=== PATIENT | female | born 1980 | race Caucasian/White ===

== ENCOUNTER 2022-10-08 19:08 | Emergency (ER) | payer OTHER, SELFPAY ==
[2022-10-08 19:34] VITALS: BP 106/53; PULSE 78; RESP 18; TEMP 36.7; O2SAT 99; BMI 23.8
[2022-10-08 20:14] LABS: Basophils % 0.8 %; Eosinophils # 0.1 10^3/uL (0.0-0.8); Hematocrit 34.4 % (37.0-47.0); Hemoglobin 10.5 g/dL (11.5-15.3); Lymphocytes # 1.2 10^3/uL (0.8-4.8); Mean Corpuscular HGB Conc 30.5 g/dL (30.0-36.0); Mean Corpuscular Hemoglobin 27.1 pg (28.0-34.0); Mean Corpuscular Volume 88.7 fl (81-99); Mean Platelet Volume 11.3 fL (7.4-10.4); Monocytes # 0.4 10^3/uL (0.2-0.9); Monocytes % 9.4 %; Neutrophils # 2.04 10^3/uL (1.8-7.7); Neutrophils % 54.8 %; Nucleated Red Blood Cells % 0 %; Platelet Count 195 10^3/cmm (130-400); Red Blood Count 3.88 10^6/uL (4.1-5.3); Red Cell Distribution Width 14.2 % (12.1-15.1); White Blood Count 3.7 10^3/uL (4.0-10.0)
[2022-10-08 20:32] LABS: HCG, Serum Qual Negative (Negative)
[2022-10-08 21:30] LABS: Alanine Aminotransferase 8 U/L (0-33); Albumin Level 4.3 g/dL (3.5-5.2); Alkaline Phosphatase 87 U/L (35-105); Anion Gap 13.1 (5-19); Aspartate Amino Transferase 14 U/L (0-32); Blood Urea Nitrogen 11 mg/dL (6-20); Carbon Dioxide 28 mmol/L (22-29); Chloride 104 mmol/L (98-107); Globulin 2.7 g/dL (1.3-4.6); Glomerular Filtration Rate 175.9 mL/min (90-130); Glucose 94 mg/dL (65-115); Lipase 38 U/L (13-60); Osmolality Calculated 291 mOsm/kg (285-295); Potassium 4.1 mmol/L (3.5-5.1); Sodium 141 mmol/L (136-145); Total Bilirubin 0.3 mg/dL (0.15-1.2)
[2022-10-08 21:45] VITALS: BP 117/80; PULSE 59; RESP 18; O2SAT 100
[2022-10-08 21:53] LABS: Add Urine Microscopic? NO; Charge for UA Resulting for Rev
--- NOTE | 2022-10-08 21:56 | CTR_ITS ---
PROCEDURE INFORMATION: Exam: CT Abdomen And Pelvis Without Contrast Exam date and time: 10/08/2022 10:43 PM Age: 42 years old Clinical indication: Abdominal pain; Prior surgery; Surgery type: Gb. Hysterectomy. Csection. Rd. Patient HX: C/O left flank pain TECHNIQUE: Imaging protocol: Computed tomography of the abdomen and pelvis without contrast. Radiation optimization: All CT scans at this facility use at least one of these dose optimization techniques: automated exposure control; mA and/or kV adjustment per patient size (includes targeted exams where dose is matched to clinical indication); or iterative reconstruction. REPORTING DATA: Count of CT and Cardiac NM exams in prior 12 months: This patient has received 0 known CTs and 0 known cardiac nuclear medicine studies in the 12 months prior to the current study. COMPARISON: No relevant prior studies available. RADIATION DOSE METRICS: Total DLP (mGy-cm): 369.03 FINDINGS: Liver: The liver is unremarkable in appearance. Gallbladder and bile ducts: The gallbladder is surgically absent. Pancreas: The pancreas is normal in appearance. No pancreatic duct dilatation. Spleen: Calcified granulomas are noted in the spleen. No splenomegaly. Adrenal glands: The adrenal glands appear within normal limits. Kidneys and ureters: The kidneys are morphologically normal. No nephrolithiasis. No hydronephrosis. No ureteral calculi. No obstructive uropathy. Stomach and bowel: Unremarkable. No obstruction. No mucosal thickening. Appendix: The appendix is normal in appearance. No evidence of appendicitis. The appendix is normal in appearance. No evidence of appendicitis. Intraperitoneal space: No pneumoperitoneum. No significant fluid collection. Vasculature: No abdominal aortic aneurysm. Lymph nodes: No pathologically enlarged lymph nodes. Urinary bladder: Unremarkable as visualized. Reproductive: Status post hysterectomy. There is abnormal thickening of the vaginal cuff, of uncertain etiology and significance. Bilateral ovaries are identified. Left ovary is slightly larger than the right ovary, of uncertain significance. No dominant ovarian cyst or solid mass on either side. Bones/joints: Left hip prosthesis noted. Degenerative spine changes. Soft tissues: Unremarkable. CT/CT kidney stone [id number] IMPRESSION: 1. The kidneys are morphologically normal. No nephrolithiasis. No hydronephrosis. No ureteral calculi. No obstructive uropathy. 2. Status post hysterectomy. There is abnormal thickening of the vaginal cuff, of uncertain etiology and significance. 3. Bilateral ovaries are identified. Left ovary is slightly larger than the right ovary, of uncertain significance. No dominant ovarian cyst or solid mass on either side. 4. Consider transvaginal ultrasound examination for further assessment of the thickened vaginal cuff and the bilateral ovaries.
--- NOTE | 2022-10-08 21:57 | W.ED.ABDPA2 ---
HPI - Abdominal Pain General: Chief Complaint: Abdominal Pain Stated Complaint: lower abd pain Time Seen by Provider: 10/08/22 21:40 History of Present Illness: Patient is a 42-year-old female comes to the ED with abdominal pain. Symptoms started this morning when she woke up. Pain was mild through most the day then this evening pain spiked up and was very intense. Denies any worsening or improving factors. She says the pain was more mild at that point was located in the left lower quadrant of the abdomen. Pain radiates up left flank and towards back. She rates the pain currently an 8 out of 10. Denies any fevers, nausea/vomiting, bowel symptoms, dysuria or hematuria. Associated Symptoms: Denies chills, constipation, diarrhea, dysuria, fever(s), hematochezia, hematuria, nausea and vomiting Review of Systems Const: Denies: fever(s), chills or fatigue Eyes: Denies: change in vision or eye discomfort ENMT: Denies: throat pain, odynophagia, nasal discharge or nasal congestion Card: Denies: chest pain, palpitations, edema, swelling of feet/ankles, dyspnea on exertion or orthopnea Resp: Denies: dyspnea, productive cough or non-productive cough GI: Reports: abdominal pain; Denies: nausea, vomiting, diarrhea, constipation or hematochezia : Reports: flank pain (Left flank); Denies: dysuria or hematuria Musc: Denies: neck pain, back pain or extremity swelling Skin/Breast: Denies: rash or new lesions Neuro: Denies: headache(s), numbness in extremities or weakness in extremities [facility] ED PFSH: Medical History No pertinent family history No pertinent past medical history Physical Exam Const: COMMON NORMALS: patient oriented x3 and alert GENERAL APPEARANCE: cooperative HENMT: COMMON NORMALS: normocephalic HEAD & SCALP: normocephalic MOUTH: Normal oral and palatal mucosa present THROAT: posterior oropharynx normal and uvula midline Neck/C-Spine: COMMON NORMALS: supple GENERAL: Yes normal visual inspection Resp: COMMON NORMALS: normal respiratory effort, No retractions, No use of accessory muscles and clear to auscultation bilaterally AUSCULTATION: clear to auscultation bilaterally Cardio: COMMON NORMALS: regular rate, regular rhythm, S1 normal heart sound present, S2 normal heart sound present, No gallops present (Cardio), No clicks present (Cardio), No murmurs present (Cardio) and Peripheral pulses 2+ throughout RATE: regular rate RHYTHM: regular rhythm HEART SOUNDS: S1 normal heart sound present and S2 normal heart sound present PERIPHERAL PULSES: Peripheral pulses 2+ throughout GI: COMMON NORMALS: Normal to inspection, nondistended, normoactive bowel sounds present, Soft to palpation and no masses PALPATION: Yes Soft to palpation and Yes Tenderness to palpation present (GI) Details: LLQ : COMMON NORMALS: Yes no CVA tenderness BLADDER/KIDNEY EXAM: Yes no CVA tenderness Back/Pelvis: COMMON NORMALS: no CVA tenderness Extremity: COMMON NORMALS: normal to inspection Neuro: COMMON NORMALS: patient oriented x3 SENSORIUM/ORIENTATION: Yes alert GAIT: Yes Normal gait present Skin: GENERAL SKIN EXAM: dry skin Course Vital Signs: Vital signs: Vital Signs Temperature 98.1 F 10/08/22 19:34 Pulse Rate 86 10/09/22 02:16 Respiratory Rate 18 10/09/22 02:16 Blood Pressure 124/76 10/09/22 02:16 Pulse Oximetry 100 10/09/22 02:16 Oxygen Delivery Me thod Room Air 10/09/22 02:10 MDM - Abdominal Pain Medical Decision Making Patient is a 42-year-old female comes to the ED with abdominal pain. Symptoms started this morning when she woke up. Pain was mild through most the day then this evening pain spiked up and was very intense. Denies any worsening or improving factors. She says the pain was more mild at that point was located in the left lower quadrant of the abdomen. Pain radiates up left flank and towards back. She rates the pain currently an 8 out of 10. Denies any fevers, nausea/vomiting, bowel symptoms, dysuria or hematuria. Vitals are stable. Patient does appear uncomfortable and in some pain. Exam shows left lower quadrant abdominal tenderness, but rest of exam is benign. Labs are all unremarkable. hCG negative. UA unremarkable. CT abdomen pelvis showed no acute findings but did note large left ovary and abnormal thickening of vaginal cuff and radiologist recommended ultrasound for further evaluation. Patient did not want to wait for ultrasound and was wanting to be discharged home. Patient said her symptoms have improved and she will follow-up with her primary care physician within the next week for reevaluation and I told her to make sure she talks with her PCP about getting set up with an outpatient ultrasound. She was given strict return to ED precautions. She was diagnosed with abdominal pain and was discharged home with a prescription for nausea med and pain med. Patient understood and agreed with plan. Lab Data I reviewed the patient's lab results. 10/08/22 19:53 10/08/22 20:48 Labs/Radiology: Radiology Impressions Abdomen/Pelvis CT 10/08/22 21:56 IMPRESSION: 1. The kidneys are morphologically normal. No nephrolithiasis. No hydronephrosis. No ureteral calculi. No obstructive uropathy. 2. Status post hysterectomy. There is abnormal thickening of the vaginal cuff, of uncertain etiology and significance. 3. Bilateral ovaries are identified. Left ovary is slightly larger than the right ovary, of uncertain significance. No dominant ovarian cyst or solid mass on either side. 4. Consider transvaginal ultrasound examination for further assessment of the thickened vaginal cuff and the bilateral ovaries. Laboratory Results WBC 3.7 10^3/uL (4.0-10.0) L 10/08/22 19:53 RBC 3.88 10^6/uL (4.1-5.3) L 10/08/22 19:53 Hgb 10.5 g/dL (11.5-15.3) L 10/08/22 19:53 Hct 34.4 % (37.0-47.0) L 10/08/22 19:53 MCV 88.7 fl (81-99) 10/08/22 19:53 MCH 27.1 pg (28.0-34.0) L 10/08/22 19:53 MCHC 30.5 g/dL (30.0-36.0) 10/08/22 19:53 RDW 14.2 % (12.1-15.1) 10/08/22 19:53 Plt Count 195 10^3/cmm (130-400) 10/08/22 19:53 MPV 11.3 fL (7.4-10.4) H 10/08/22 19:53 Neut % (Auto) 54.8 % 10/08/22 19:53 Lymph % (Auto) 32.0 % 10/08/22 19:53 [place] % (Auto) 9.4 % 10/08/22 19:53 Eos % (Auto) 3.0 % 10/08/22 19:53 Baso % (Auto) 0.8 % 10/08/22 19:53 Neut # (Auto) 2.04 10^3/uL (1.8-7.7) 10/08/22 19:53 Lymph # (Auto) 1.2 10^3/uL (0.8-4.8) 10/08/22 19:53 [place] # (Auto) 0.4 10^3/uL (0.2-0.9) 10/08/22 19:53 Eos # (Auto) 0.1 10^3/uL (0.0-0.8) 10/08/22 19:53 Baso # (Auto) 0.0 10^3/uL (0.0-0.1) 10/08/22 19:53 Nucleated RBC % (auto) 0 % 10/08/22 19:53 Nucleated RBCs # 0.0 /100WBC 10/08/22 19:53 Sodium 141 mmol/L (136-145) 10/08/22 20:48 Potassium 4.1 mmol/L (3.5-5.1) 10/08/22 20:48 Chloride 104 mmol/L (98-107) 10/08/22 20:48 Carbon Dioxide 28 mmol/L (22-29) 10/08/22 20:48 Anion Gap 13.1 (5-19) 10/08/22 20:48 BUN 11 mg/dL (6-20) 10/08/22 20:48 Creatinine 0.4 mg/dL (0.5-0.9) L 10/08/22 20:48 GFR Calculation 175.9 mL/min (90-130) H 10/08/22 20:48 Glucose 94 mg/dL (65-115) 10/08/22 20:48 Calculated Osmolality 291 mOsm/kg (285-295) 10/08/22 20:48 Calcium 9.0 mg/dL (8.5-10.5) 10/08/22 20:48 Total Bilirubin 0.3 mg/dL (0.15-1.2) 10/08/22 20:48 AST 14 U/L (0-32) 10/08/22 20:48 ALT 8 U/L (0-33) 10/08/22 20:48 Alkaline Phosphatase 87 U/L (35-105) 10/08/22 20:48 Total Protein 7.0 g/dL (6.6-8.7) 10/08/22 20:48 Albumin 4.3 g/dL (3.5-5.2) 10/08/22 20:48 Globulin 2.7 g/dL (1.3-4.6) 10/08/22 20:48 Lipase 38 U/L (13-60) 10/08/22 20:48 HCG, Qual Negative (Negative) 10/08/22 19:53 Urine Color Yellow (Yellow) 10/08/22 21:49 Urine Appearance Clear (CLEAR) 10/08/22 21:49 Urine pH 7 (5-7) 10/08/22 21:49 Ur Specific [place] 1.015 (1.005-1.030) 10/08/22 21:49 Urine Protein Neg (Negative) 10/08/22 21:49 Urine Glucose (UA) Norm (Normal) 10/08/22 21:49 Urine Ketones Negative (Negative) 10/08/22 21:49 Urine Blood Neg (Negative) 10/08/22 21:49 Urine Nitrate Negative (Negative) 10/08/22 21:49 Urine Bilirubin Neg (Negative) 10/08/22 21:49 Urine Urobilinogen Norm mg/dL (Negative) 10/08/22 21:49 Ur Leukocyte Esterase Negative (Negative) 10/08/22 21:49 Discharge Plan Discharge Patient Disposition: Home Clinical Impression: Abdominal pain Qualifiers: Abdominal location: left lower quadrant Qualified Code(s): R10.32 - Left lower quadrant pain Condition: Stable Prescriptions: New ondansetron 4 mg tablet,disintegrating 4 mg PO Q8H PRN (Reason: nausea and vomiting) Qty: 12 0RF Discharge Orders: Discharge ED (Routine); Ordered 10/09/22 Ordered By: Pantera Reese Discharge Diet: Regular Discharge Activity: Increase activity as tolerated Patient Instructions: Abdominal Pain (ED), Opioid Safety Activity Restrictions/Additional Instructions: Follow-up with your primary care physician within the next week for reevaluation and have your PCP set up an outpatient ultrasound of pelvis for further evaluation. Take medications as prescribed. Return to the ER or your medical provider if condition worsens. Please read and understand discharge instructions. Thank you for choosing [facility] for your healthcare needs today. Please realize this is an emergency room and that we are providing you with a medical screening exam and this may not be complete and all inclusive of all the testing and or work up that you may need to determine your ailment or severity of your illness. It is very important that you follow up as instructed or that you return to the Emergency Department should you have concerns or if your condition changes or worsens in any way. Coding Level of Care Code ED Internal Communications Writer for Estefania Golden
[2022-10-08 22:14] VITALS: RESP 18
[2022-10-08] MEDS: ondansetron 2 mg/ML SDV 2 mL 4 MG IVP (22:14)
[2022-10-08] MEDS: morphine 4 mg/mL SDV 1 mL IVP (22:14)
[2022-10-08 22:15] LABS: Bilirubin Urine Neg (Negative); Blood Urine Neg (Negative); Glucose Urine UA Norm (Normal); Ketones Urine Negative (Negative); Leukocyte Esterase Urine Negative (Negative); Nitrate Urine Negative (Negative); Protein Urine Neg (Negative); Specific Gravity, Urine 1.015 (1.005-1.030); Urine Appearance Clear (CLEAR); Urine Color Yellow (Yellow); Urobilinogen Urine Norm (Negative); pH Urine 7 (5-7)
[2022-10-08 22:25] VITALS: BP 117/39; O2SAT 98
[2022-10-08 22:36] VITALS: BP 117/39; O2SAT 95
--- NOTE | 2022-10-08 22:36 | PC.NURSE ---
Patient taken to CT via stretcher by hyperbaric tech
[2022-10-08 23:24] VITALS: BP 101/61; PULSE 76; RESP 18; O2SAT 98
[2022-10-09 02:10] VITALS: BP 124/76; PULSE 83; RESP 18; O2SAT 100
[2022-10-09 02:16] VITALS: BP 124/76; PULSE 86; RESP 18; O2SAT 100
--- NOTE | 2022-10-11 14:50 | DCPLANNER ---
manager investigations was triggered to call patient due to no primary care physician - patient does not live in the area
== END 2022-10-09 02:18 | disposition home or self-care (01) ==
PROVIDERS: Emergency Medicine; Emergency Provider Physician Assistant
DX: R10.32 Left lower quadrant pain (principal)
CPT/HCPCS: 36415; 74176; 80053; 81003; 83690; 84703; 85025; 96374; 96375; 99285; J2270; J2405